=== PATIENT | male | born 1980 | race Two or more races ===

== ENCOUNTER 2025-07-08 17:40 | Inpatient (IN) | payer MEDICAID, OTHER ==
[~2025-07-08] VITALS: Ht 182.9 cm; Wt 125.3 kg
[2025-07-08] VITALS (8 sets, daily range): BP systolic 113–129; BP diastolic 64–79; PULSE 70–135; RESP 11–19; TEMP 97.7–98.4; O2SAT 94–97
[2025-07-08] MEDS ORDERED: ANGIOMAX 250 MG VIAL IV ONE ×2 (17:54→18:23)
[2025-07-08] MEDS ORDERED: SODIUM CHL 0.9% 50 ML ONE ×2 (17:54→18:23)
[2025-07-08] MEDS ORDERED: LIDOCAINE 2%HCL (LOCAL ANESTH.) INJ 20ML MDV ONE (17:55)
[2025-07-08] MEDS ORDERED: IODIXANOL 320MG/ML 100ML BTL IV ONE (17:55)
[2025-07-08] MEDS ORDERED: NITROGLYCERIN 2% OINT 1GM PKG TD ONE (18:00)
[2025-07-08] MEDS ORDERED: ONDANSETRON HCL 4 MG/2 ML VIAL IV ONE (18:00)
[2025-07-08] MEDS ORDERED: MORPHINE SULFATE 4 MG/ML SYR/VIAL IV ONE (18:00)
--- NOTE | 2025-07-08 18:04 | ED.PDOC ---
HPI Comments 45-year-old male brought in by EMS from home complaining of chest pain described as a heavy weight sitting on his chest, radiating to LUE and L jaw, associated with shortness of breath, nausea and diaphoresis, onset around 1650. EKG performed by EMS showed inferior ST-elevation with reciprocal changes. On arrival to the ED, code STEMI was activated. Patient took his own aspirin 324 mg p.o. Chief Complaint: Chest Pain Time Seen by MD: 17:49 Allergies: Coded Allergies: NO KNOWN ALLERGIES (Unverified , 07/08/25) Mode of Arrival: EMS Past Medical History PAST MEDICAL HISTORY: High Lipids, HTN Surgical History: Denies all surgeries Family History Family History: Family hx of heart paulina, Family hx of stroke Social History Smoker: Non-Smoker Alcohol: Denies ETOH Use Drugs: Denies Drug Use Lives In: Home All Other Systems: Reviewed and Negative Physical Exam General Appearance: Mild Distress, Obese HEENT: Other (Pupils and face symmetric. Moist mucous membranes.) Neck: Full Range of Motion, Normal Inspection Respiratory: Lungs Clear, No Accessory Muscle Use, No Respiratory Distress, N ormal Breath Sounds Cardiovascular: No Edema, No JVD, Regular Rate/Rhythm Breast Exam: Deferred Gastrointestinal: Non Tender, Soft Genitalia: Deferred Pelvic: Deferred Rectal: Deferred Extremities: Normal inspection, Normal range of motion, Non-tender, No pedal edema Neurologic: Alert (Oriented x4), Normal Affect, Normal Mood, Other (No gross focal deficit) Cerebellar Function: NOT DONE Reflexes: NOT DONE Skin: Dry, Pallor, Warm Lymphatic: NOT DONE EKG EKG : Comments Sinus rhythm, rate 78, normal intervals, normal axis, ST-elevation in leads 2, 3, AVF, V4 through V6 with reciprocal changes in aVL, V1 and V2 with ST- elevation [place] Was a procedure done? Was a procedure done?: No CP Differential Dx Differential Diagnosis: Angina, Heart Failure, TX, Pulmonary Embolus Differential Diagnosis: HTN Essential, HTN Accelerated Differential Diagnosis: Aortic dissection, Chest Wall Pain, Esophageal reflux/spasm, Gastritis, Pericarditis X-Ray, Labs, Meds, VS Vital Signs Date Time Temp Pulse Resp B/P (MAP) Pulse Ox O2 Delivery O2 Flow Rate FiO2 07/08/25 17:43 98.8 88 22 170/102 100 98.8 07/08/25 17:42 78 Lab Test 07/08/25 17:50 Range/Units White Blood Count 10.9 H 4.4-10.8 10^3/uL Red Blood Count 5.91 H 4.5-5.90 10^6/uL Hemoglobin 17.3 13.5-17.5 g/dL Hematocrit 50.2 41.0-53.0 % Mean Corpuscular Volume 84.9 80.0-100.0 fL Mean Corpuscular Hemoglobin 29.3 28.0-32.0 pg Mean Corpuscular Hemoglobin Concent 34.5 32.0-36.0 g/dL Red Cell Distribution Width 14.1 11.8-14.3 % Platelet Count 227 140-450 10^3/uL Mean Platelet Volume 8.4 6.9-10.8 fL Neutrophils (%) (Auto) 62.6 37.0-80.0 % Lymphocytes (%) (Auto) 27.6 10.0-50.0 % Monocytes (%) (Auto) 7.7 0.0-12.0 % Eosinophils (%) (Auto) 1.2 0.0-7.0 % Basophils (%) (Auto) 0.9 0.0-2.0 % Neutrophils # (Auto) 6.8 1.6-8.6 10 ^3/uL Lymphocytes # (Auto) 3.0 0.4-5.4 10 ^3/uL Monocytes # (Auto) 0.8 0-1.3 10 ^3/uL Eosinophils # (Auto) 0.1 0-0.8 10 ^3/uL Basophils # (Auto) 0.1 0-0.2 10 ^3/uL Nucleated Red Blood Cells 0.1 % Prothrombin Time 11.3 9.3-11.8 sec Prothrombin Time INR 1.07 0.9-1.15 Activated Partial Thromboplast Time 25.4 24.5-34.5 SEC Sodium Level 139 136-145 mmol/L Potassium Level 4.3 3.5-5.1 mmol/L Chloride Level 105 98-107 mmol/L Carbon Dioxide Level 24 20-31 mmol/L Anion Gap 10 5-15 Blood Urea Nitrogen 18 9-23 mg/dL Creatinine 2.06 H 0.700-1.30 mg/dL Glomerular Filtration Rate Calc 40 >90 mL/min BUN/Creatinine Ratio 8.7 L 10.0-20.0 Serum Glucose 165 H 74-106 mg/dL Calcium Level 9.4 8.7-10.4 mg/dL Magnesium Level 1.9 1.6-2.6 mg/dL Total Bilirubin 0.5 0.2-1.0 mg/dL Aspartate Amino Transferase (AST) 25 13-40 U/L Alanine Aminotransferase (ALT) 28 7-40 U/L Alkaline Phosphatase 82 46-116 U/L Troponin I High Sensitivity 8 </=54 ng/L B-Type Natriuretic Peptide 43.26 0-100 pg/mL Total Protein 6.9 5.7-8.2 g/dL Albumin 4.5 3.2-4.8 g/dL PROCEDURE(s): CXRP - CHEST PORTABLE REASON: stemi ORDER NUMBER(s): [id number], ACCESSION NUMBER(s): [id number] CHEST RADIOGRAPH Indication: stemi Technique: Single frontal view of the chest was obtained Comparison: None FINDINGS: Lines and Tubes: None Lungs: No focal consolidation. Pleura: No effusion. No pneumothorax. Cardiomediastinal contours: Unremarkable Bones: No acute osseous abnormality. IMPRESSION: 1. No acute cardiopulmonary disease. X-Ray, Labs, Meds, VS Comment 45-year-old male with history of hypertension and dyslipidemia brought in by EMS from home complaining of chest pain. EKG shows STEMI Vitals remarkable for respiratory rate 22, BP 170/102 Exam unremarkable Rhythm strip independently interpreted by me: Sinus rhythm, rate 98, no ectopy. CBC remarkable for WBC 10.9, metabolic panel remarkable for creatinine 2.06, BNP and 1st troponin unremarkable Chest x-ray unremarkable Patient treated with the following in the ED: I immediately discussed the case with Dr. Carr, who agreed the patient qualifies as a STEMI. Code STEMI was immediately activated. 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 Time of 1ST Reevaluation: 18:02 Reevaluation 1ST: Improved Patient Education/Counseling: Diagnosis, Treatment Family Education/Counseling: No Family Present SEPSIS Sepsis Screen Date sepsis recognized/suspect: Jul 08, 2025 Time Sepsis recognized/suspect: 1742 Recent Procedure: No On Antibiotic Therapy: No Respiratory Rate >20: No Heart Rate >90: No Temp<36 C (96.8 F) or >38.3 C: No SBP <90 or MAP <65 mmHG: No New Acute Mental Status Change: No Is the patient on CPAP, BIPAP,: No SEPSIS EXCLUSION NOTE: Sepsis Exclusion Note: Patient presents with SIRS criteria, but the SIRS response is attributed to [ST- elevation [place] ], not a suspected infection. Sepsis bundle is not initiated at this time, due to this reason. Further management will focus on the treatment of the above condition (s). Physician Orders Chest Portable (07/08/25 17:49) Urinalysis (07/08/25 17:49) Electrocardigram (07/08/25 20:49) Electrocardigram (07/08/25 18:49) Cl Left Heart Cath (07/08/25 17:57) 2 Large Bore Ivs (20mg Or Larg (07/08/25 17:57) Vital Signs Date Time Temp Pulse Resp B/P (MAP) Pulse Ox O2 Delivery O2 Flow Rate FiO2 07/08/25 17:43 98.8 88 22 170/102 100 98.8 07/08/25 17:42 78 Laboratory Tests Test 07/08/25 17:50 White Blood Count 10.9 10^3/uL (4.4-10.8) H Departure 1 Departure Time of Disposition: 18:03 Impression: Primary Impression: ST elevation TX (STEMI) Qualified Codes: I21.3 - ST elevation (STEMI) myocardial infarction of unspecified site Disposition: ADMITTED INPATIENT Admit to: ERIN Condition: Serious Critical Care Note Critical Care Time?: Yes (30 min-critical care time only) Critical care comment: Critical care time including multiple bedside re-evaluations, review of lab and imaging studies, and discussion of the case with the admitting provider. Patient is high risk for hemodynamic decompensation. Stability Stability form required: No Heart Score Heart Score: Heart Score Response (Comments) Value History Highly Suspicious [address]-Deviation 2 Age <45 0 Risk Factors 1 or 2 risk factors 1 Troponin Normal limit 0 Total 5 ANGELICA MEANS MD Jul 08, 2025 18:04
[2025-07-08 18:06] LABS: Hematocrit 50.2 % (41.0-53.0); Hemoglobin 17.3 g/dL (13.5-17.5); Mean Corpuscular Hemoglobin 29.3 pg (28.0-32.0); Mean Corpuscular Volume 84.9 fL (80.0-100.0); Nucleated Red Blood Cells % 0.1 %
[2025-07-08 18:18] LABS: Alanine Aminotransferase 28 U/L (7-40); Alkaline Phosphatase 82 U/L (46-116); Anion Gap 10 (5-15); Calcium 9.4 mg/dL (8.7-10.4); Carbon Dioxide 24 mmol/L (20-31); Chloride 105 mmol/L (98-107); Magnesium 1.9 mg/dL (1.6-2.6); Potassium 4.3 mmol/L (3.5-5.1); Sodium 139 mmol/L (136-145)
[2025-07-08 18:19] LABS: Albumin 4.5 g/dL (3.2-4.8); BUN/Creatinine Ratio 8.7 (10.0-20.0); Bilirubin, Total 0.5 mg/dL (0.2-1.0); Blood Urea Nitrogen 18 mg/dL (9-23); Glucose 165 mg/dL (74-106); Total Protein 6.9 g/dL (5.7-8.2)
[2025-07-08] MEDS ORDERED: MIDAZOLAM HCL 2MG/2ML 2ml VIAL (1mg/ml) ONE (18:20)
[2025-07-08] MEDS ORDERED: fentaNYL CITRATE 100 MCG/2 ML VL ONE (18:20)
--- NOTE | 2025-07-08 18:20 | DVH ---
CHEST RADIOGRAPH Indication: stemi Technique: Single frontal view of the chest was obtained Comparison: None FINDINGS: Lines and Tubes: None Lungs: No focal consolidation. Pleura: No effusion. No pneumothorax. Cardiomediastinal contours: Unremarkable Bones: No acute osseous abnormality. IMPRESSION: 1. No acute cardiopulmonary disease.
[2025-07-08 18:27] LABS: INR 1.07 (0.9-1.15); Partial Thromboplastin Time 25.4 SEC (24.5-34.5); Prothrombin Time 11.3 sec (9.3-11.8)
--- NOTE | 2025-07-08 18:30 | ECG ---
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
[2025-07-08] MEDS: MORPHINE SULFATE 4 MG/ML SYR/VIAL ONE (18:35)
[2025-07-08] MEDS: ONDANSETRON HCL 4 MG/2 ML VIAL ONE (18:35)
[2025-07-08] MEDS ORDERED: ATROPINE SULF 1 MG/10ml SYR ONE (18:49)
[2025-07-08] MEDS ORDERED: ONDANSETRON HCL 4 MG/2 ML VIAL ONE (18:58)
[2025-07-08] MEDS ORDERED: EPTIFIBATIDE DRIP(0.75MG/ML) 100 ML IV ONE (19:13)
[2025-07-08] MEDS ORDERED: EPTIFIBATIDE INJ (2MG/ML) 10ML VIAL IV ONE (19:13)
[2025-07-08] MEDS ORDERED: TICAGRELOR 90 MG TAB ONE (19:21)
[2025-07-08] MEDS ORDERED: NITROGLYCERIN 0.4 MG SL TAB SL PRN (19:30)
--- NOTE | 2025-07-08 23:13 | DVHINCON2 ---
Date of service: Jul 08, 2025 Referring Physician Mulugeta Reason for Consultation STEMI History of Present Illness This is a 44 year old male with a PMH of HTN HLD who was brought in by EMS with complaints of chest pain described as a heavy weight sitting on his chest, radiating to LUE and left side of jaw. Associated symptoms of shortness of breath, nausea and diaphoresis, onset around 1650. EKG performed by EMS showed inferior ST-elevation with reciprocal changes. On arrival to the ED, code STEMI was activated. Patient took his own aspirin 324 mg p.o. I seen the patient within a few minutes. EKG in the ED revealed sinus rhythm at 78, normal intervals, normal axis, ST-elevation in leads 2, 3, AVF, V4 through V6 with reciprocal changes in aVL, V1 and V2 with ST-elevation [place]. Chest x-ray shows NAD. CBC remarkable for WBC 10.9, metabolic panel remarkable for creatinine 2.06. BNP and 1st troponin unremarkable. Patient received nitro bid 1/2 inch topically, morphine 4 mg IV, Zofran 4 mg IV. Patient advised for cardiac cath. Patient received nitro bid 1/2 inch topically, morphine 4 mg IV, Zofran 4 mg IV Family History: Diabetes mellitus G8 MOTHER G8 FATHER FH: CVA (cerebrovascular accident) G8 MOTHER FH: peptic ulcer G8 FATHER Allergies: Coded Allergies: NO KNOWN ALLERGIES (Unverified , 07/08/25) Current Medications Current Medications Medications (Trade) Dose Ordered Sig/Negrita Route PRN Reason Start Time Stop Time Status Last Admin Nitroglycerin (Ntrostat Sublingual) 0.4 mg Q5MINP PRN SL FOR CHEST PAIN 07/08/25 19:30 Morphine Sulfate 2 mg Q30M PRN IV FOR CHEST PAIN 07/08/25 19:30 Metoprolol Succinate (Toprol Xl) 25 mg DAILY PO 07/09/25 10:00 Aspirin 81 mg DAILY PO 07/09/25 10:00 Atorvastatin Calcium (Lipitor) 80 mg HS PO 07/08/25 22:00 Clopidogrel Bisulfate (Plavix) 75 mg DAILY PO 07/10/25 10:00 Losartan Potassium (Cozaar Tablet) 25 mg DAILY PO 07/09/25 10:00 Cancel Eptifibatide 100 ml @ 20 mls/hr Q5H IV 07/08/25 20:00 07/09/25 17:00 Losartan Potassium (Cozaar Tablet) 25 mg BID PO 07/08/25 22:00 Amiodarone HCl (Cordarone Tablet) 200 mg Q12HR PO 07/09/25 10:00 UNV Review of Systems All Other Systems: Reviewed and Negative Vital Signs Vital Signs Date Time Temp Pulse Resp B/P (MAP) Pulse Ox O2 Delivery O2 Flow Rate FiO2 07/08/25 21:00 97.7 78 19 129/79 (96) 97 97.7 Physical Exam GENERAL: Alert and oriented x 3. No acute distress. EYES: PERRL, EOMI. Anicteric. HENT: Moist mucous membranes. LUNGS: Clear to auscultation bilaterally. CARDIOVASCULAR: Regular rate and rhythm. ABDOMEN: Soft, non-tender and non-distended. EXTREMITIES: No edema. NEUROLOGIC: No focal neurological deficits. SKIN: Warm, dry. Labs/Diagnostic Data Labs Test 07/08/25 17:50 Range/Units White Blood Count 10.9 H 4.4-10.8 10^3/uL Red Blood Count 5.91 H 4.5-5.90 10^6/uL Hemoglobin 17.3 13.5-17.5 g/dL Hematocrit 50.2 41.0-53.0 % Mean Corpuscular Volume 84.9 80.0-100.0 fL Mean Corpuscular Hemoglobin 29.3 28.0-32.0 pg Mean Corpuscular Hemoglobin Concent 34.5 32.0-36.0 g/dL Red Cell Distribution Width 14.1 11.8-14.3 % Platelet Count 227 140-450 10^3/uL Mean Platelet Volume 8.4 6.9-10.8 fL Neutrophils (%) (Auto) 62.6 37.0-80.0 % Lymphocytes (%) (Auto) 27.6 10.0-50.0 % Monocytes (%) (Auto) 7.7 0.0-12.0 % Eosinophils (%) (Auto) 1.2 0.0-7.0 % Basophils (%) (Auto) 0.9 0.0-2.0 % Neutrophils # (Auto) 6.8 1.6-8.6 10 ^3/uL Lymphocytes # (Auto) 3.0 0.4-5.4 10 ^3/uL Monocytes # (Auto) 0.8 0-1.3 10 ^3/uL Eosinophils # (Auto) 0.1 0-0.8 10 ^3/uL Basophils # (Auto) 0.1 0-0.2 10 ^3/uL Nucleated Red Blood Cells 0.1 % Prothrombin Time 11.3 9.3-11.8 sec Prothrombin Time INR 1.07 0.9-1.15 Activated Partial Thromboplast Time 25.4 24.5-34.5 SEC Sodium Level 139 136-145 mmol/L Potassium Level 4.3 3.5-5.1 mmol/L Chloride Level 105 98-107 mmol/L Carbon Dioxide Level 24 20-31 mmol/L Anion Gap 10 5-15 Blood Urea Nitrogen 18 9-23 mg/dL Creatinine 2.06 H 0.700-1.30 mg/dL Glomerular Filtration Rate Calc 40 >90 mL/min BUN/Creatinine Ratio 8.7 L 10.0-20.0 Serum Glucose 165 H 74-106 mg/dL Calcium Level 9.4 8.7-10.4 mg/dL Magnesium Level 1.9 1.6-2.6 mg/dL Total Bilirubin 0.5 0.2-1.0 mg/dL Aspartate Amino Transferase (AST) 25 13-40 U/L Alanine Aminotransferase (ALT) 28 7-40 U/L Alkaline Phosphatase 82 46-116 U/L Troponin I High Sensitivity 8 </=54 ng/L B-Type Natriuretic Peptide 43.26 0-100 pg/mL Total Protein 6.9 5.7-8.2 g/dL Albumin 4.5 3.2-4.8 g/dL Assessment STEMI. Chest pain. HTN. HLD. Plan/Recommendation I agree with your ongoing assessment and care of plan. Cardiac cath. Risks and benefits were discussed with the patient. Morphine. Nitro SL. Aspirin, Lipitor, Metoprolol, Plavix. Losartan. Amiodarone. Additional plan as per the hospital course. A total of 45 minutes was spent reviewing the patient record, examining the patient, making a diagnostic and therapeutic plan, discussing this plan with medical personnel, following up on diagnostic studies and following the patient for clinical stability excluding any and all procedures. At least 50% of this time was spent in direct, [id number] contact. Plan discussed with: Patient МАРИНА SOTELO MD Jul 08, 2025 23:13
[2025-07-08] MEDS: ATORVASTATIN 20 MG TAB PO SCH (23:32)
[2025-07-08] MEDS: AMIODARONE HCL 200 MG TAB PO ONE (23:33)
[2025-07-08] MEDS: LOSARTAN POTASSIUM 50 MG TAB PO SCH (23:49)
[2025-07-09] VITALS (9 sets, daily range): BP systolic 98–130; BP diastolic 61–89; PULSE 55–63; RESP 17–20; TEMP 97.3–98.3; O2SAT 95–98
[2025-07-09] MEDS: EPTIFIBATIDE DRIP(0.75MG/ML) 100 ML IV SCH (01:00)
[2025-07-09] MEDS: MORPHINE SULFATE INJ 2 MG/ml SYRG IV PRN (05:17)
--- NOTE | 2025-07-09 07:29 | DVHOP ---
DATE OF SURGERY: 07/08/2025 TECHNIQUE PERFORMED: * Code STEMI. * Left heart cath. * Left coronary angiography * [place] selective left and right coronary artery angiography. ASSISTANTS: Assisted by our staff here is Eda Hall Steven. INDICATIONS: As follows: * The patient had code STEMI. * Acute inferior wall myocardial infarction. DESCRIPTION OF PROCEDURE: Risks and benefits were discussed in a standard manner. The patient had been urgently brought to labor representative and the right femoral artery had been located. Ultrasound was done. A 6-Egyptian arterial line was used during the protocol. With the help of a JL4 catheter, performed. With the help of the JR4 6-Egyptian guiding catheter, the right groin angio performed. At the end of the procedure, we also did a left heart cath and the left ventriculogram procedure completed. IMPRESSION: * Normal left main. * Left anterior descending artery has been normal and artery normal. * Circumflex and obtuse marginal arteries all have been normal. * patient's right coronary artery is a large dominant artery and distally it is 100% acutely occluded. MAYRA grade 0 flow. * The ejection fraction wall hypokinesis. PLAN OF ACTION: Advised to undergo the intervention of the right coronary artery. Hector Carr MD MP/MARAH/KEYANNA/MARIBELL TID: [id number] RECEIPT: [id number] MTDRahul
--- NOTE | 2025-07-09 07:45 | DVHOP ---
DATE OF SURGERY: 07/08/2025 TECHNIQUES PERFORMED: * Post STEMI. * Right groin angiography. * Mechanical thrombectomy of the distal region of the right coronary artery with 6-Czech [place] catheter. * Balloon angioplasty of the right coronary artery with 3.2 x 12 mm length semi-compliant balloon. * Balloon angioplasty of the distal region of the right coronary artery with a 3.0 x 12 mm length semi-compliant balloon. * Stenting and angioplasty of the distal region of the right coronary artery with a 3.0 x 15 mm length Jim Otoe stent of Sencera and inflated mm in size. * Right iliofemoral artery angiography. * Arteriotomy angiography of the right femoral artery. * administration of Integrilin and bolus. * Ultrasound of the right femoral artery was done. DESCRIPTION OF PROCEDURE: On 07/08/2025, the patient with post STEMI acute inferior wall myocardial infarction. Procedure was discussed. He was brought to the label stamper after doing the ultrasound of the right femoral artery was done. After doing ultrasound, 6-Czech arterial line has been placed guidance. Subsequently 6-Czech line had been placed after doing the ultrasound, we put a 6-Czech guiding catheter with a side hole. Angiomax was given. Runthrough wire was passed and Shepp[place] catheter thrombectomy was done. Angiography done, result was satisfactory. Subsequently, we put a balloon 3.0 x 12. Angioplasty was done and flow had been established. After doing angioplasty, there was an intimal dissection also noted, about 8 mm length. Subsequently, now we put a stent 3.0 x 15 mm length Jim Otoe stent inflated at 17 atmospheres, stent size was increased to 3.33 mm in size, inflated for 35 seconds and for 15 seconds. Angiography done, result was satisfactory. Post-stent, there was some noted in the range of only 50%. At the end of the procedure, intracoronary Integrilin was also given with the bolus and started on the patient. Right iliofemoral artery angiography was done with the help of an Amplatz wire and Angio-Seal also had been done. The procedure went well. There were no complications. CONCLUSION: distal region of the right coronary artery 100% acutely occluded, MAYRA grade 0 flow. Postprocedure, MAYRA grade 3 flow. No spasm. No dissection. No thrombosis. Right coronary artery is a large dominant artery. PLAN OF ACTION: * label stamper. * From tomorrow, the patient will be getting Plavix and to be continued Plavix 75 mg a day, aspirin 81 mg a day, Coreg. Hector Carr MD MP/[place]AN [place]/KEYANNA/MARIBELL TID: [id number] RECEIPT: [id number] MTDD
[2025-07-09] MEDS ORDERED: LOSARTAN POTASSIUM 25 MG TAB PO SCH (10:00)
[2025-07-09] MEDS: METOPROLOL SUCCINATE XL 50 MG TAB PO SCH (11:15)
[2025-07-09] MEDS: AMIODARONE HCL 200 MG TAB PO SCH (11:16)
--- NOTE | 2025-07-09 12:06 | DVHPN2 ---
Reviewed: Care Plan, H&P, Labs, Medications, Previous Orders, Radiology Changes from previous H/P or p: No Changes Objective Vitals Vital Signs Date Time Temp Pulse Resp B/P (MAP) Pulse Ox O2 Delivery O2 Flow Rate FiO2 07/09/25 11:16 126/88 07/09/25 11:15 19 07/09/25 09:00 98.3 19 95 98.3 07/09/25 08:00 Room Air* 0 21 Intake/Output Intake and Output 07/09/25 07:00 Intake Total 800 ml Balance 800 ml Intake Oral 800 ml # Voids 2 Medications Current Medications Medications Dose Ordered Sig/Negrita Route Start Time Stop Time Status Last Admin Dose Admin Nitroglycerin 0.4 mg Q5MINP PRN SL 07/08/25 19:30 Morphine Sulfate 2 mg Q30M PRN IV 07/08/25 19:30 07/09/25 05:17 2 MG Metoprolol Succinate 25 mg DAILY PO 07/09/25 10:00 07/09/25 11:15 25 MG Aspirin 81 mg DAILY PO 07/09/25 10:00 07/09/25 11:17 81 MG Atorvastatin Calcium 80 mg HS PO 07/08/25 22:00 07/08/25 23:32 80 MG Clopidogrel Bisulfate 75 mg DAILY PO 07/10/25 10:00 Losartan Potassium 25 mg DAILY PO 07/09/25 10:00 Cancel Eptifibatide 100 ml @ 20 mls/hr Q5H IV 07/08/25 20:00 07/09/25 17:00 07/09/25 11:24 20 MLS/HR Losartan Potassium 25 mg BID PO 07/08/25 22:00 07/09/25 11:16 25 MG Amiodarone HCl 200 mg Q12HR PO 07/09/25 10:00 07/09/25 11:16 200 MG Laboratory Results Laboratory Tests 07/08/25 17:50 Chemistry Test 07/08/25 17:50 Albumin 4.5 g/dL (3.2-4.8) Calcium Level 9.4 mg/dL (8.7-10.4) Magnesium Level 1.9 mg/dL (1.6-2.6) Total Protein 6.9 g/dL (5.7-8.2) Coagulation Test 07/08/25 17:50 Prothrombin Time 11.3 sec (9.3-11.8) Prothrombin Time INR 1.07 (0.9-1.15) Activated Partial Thromboplast Time 25.4 SEC (24.5-34.5) Cardiac Markers Test 07/08/25 17:50 B-Type Natriuretic Peptide 43.26 pg/mL (0-100) LFT Test 07/08/25 17:50 Alanine Aminotransferase (ALT) 28 U/L (7-40) Alkaline Phosphatase 82 U/L (46-116) Aspartate Amino Transferase (AST) 25 U/L (13-40) Total Bilirubin 0.5 mg/dL (0.2-1.0) Labs and/or images reviewed: Labs reviewed by me, Image(s) reviewed by me Assessment/Plan Assessment/Plan Acute Chest pain secondary to coronary artery disease Acute inferior OR with troponin 25K, status post emergency left heart catheterization by Dr. Hill Carr with a mechanical thrombectomy of distal right coronary balloon angioplasty of right coronary stenting of the distal right coronary Plan discussed with: Patient Date of Service: Jul 09, 2025 Billing Provider: VINNIE LAU MD Common Visit Codes: [id number] INP/OBS CARE(HIGH) VINNIE LAU MD Jul 09, 2025 12:06
--- NOTE | 2025-07-09 16:34 | ECG ---
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
[2025-07-09] MEDS: CLOPIDOGREL BISULFATE 75 MG TAB PO ONE (17:24)
--- NOTE | 2025-07-09 21:56 | DVHPN2 ---
Progress Note - Dictate Date Seen: Jul 09, 2025 Medical Necessity Reason Pt with a Central, PICC or Fol: No Subjective Patient was seen and evaluated in follow up. Patient is s/p left heart cath, [place] selective left and right coronary artery angiography, right groin angiography, mechanical thrombectomy of the distal region of the right coronary artery, balloon angioplasty of the right coronary artery, balloon angioplasty of the distal region of the right coronary artery, stenting and angioplasty of the distal region of the right coronary artery. Troponin > 17305. Telemetry reviewed. vital signs Vital Sign Date Time Temp Pulse Resp B/P (MAP) Pulse Ox O2 Delivery O2 Flow Rate FiO2 07/09/25 17:00 97.4 60 17 116/78 (91) 98 97.4 07/09/25 08:00 Room Air* 0 21 Total Intake and Output 07/08/25 07/08/25 07/09/25 15:00 23:00 07:00 Intake Total 800 ml Balance 800 ml medications Current Medications Medications Dose Ordered Sig/Negrita Route Start Time Stop Time Status Last Admin Dose Admin Nitroglycerin 0.4 mg Q5MINP PRN SL 07/08/25 19:30 Morphine Sulfate 2 mg Q30M PRN IV 07/08/25 19:30 07/09/25 05:17 2 MG Metoprolol Succinate 25 mg DAILY PO 07/09/25 10:00 07/09/25 11:15 25 MG Aspirin 81 mg DAILY PO 07/09/25 10:00 07/09/25 11:17 81 MG Atorvastatin Calcium 80 mg HS PO 07/08/25 22:00 07/09/25 21:47 80 MG Clopidogrel Bisulfate 75 mg DAILY PO 07/10/25 10:00 Losartan Potassium 25 mg DAILY PO 07/09/25 10:00 Cancel Losartan Potassium 25 mg BID PO 07/08/25 22:00 07/09/25 11:16 25 MG Amiodarone HCl 200 mg Q12HR PO 07/09/25 10:00 07/09/25 11:16 200 MG objective GENERAL: Alert and oriented x 3. No acute distress. EYES: PERRL, EOMI. Anicteric. HENT: Moist mucous membranes. LUNGS: Clear to auscultation bilaterally. CARDIOVASCULAR: Regular rate and rhythm. ABDOMEN: Soft, non-tender and non-distended. EXTREMITIES: No edema. NEUROLOGIC: No focal neurological deficits. SKIN: Warm, dry. laboratory and microbiology Laboratory Tests 07/08/25 17:50 Test 07/08/25 17:50 Range/Units Serum Glucose 165 H 74-106 mg/dL Problem List STEMI. Chest pain. HTN. HLD. Assessment/Plan Continued all current supportive medical care. Amiodarone. Aspirin, Lipitor, Metoprolol, Plavix. Losartan. Morphine for pain management. Nitro SL. Additional plan as per the hospital course. Plan discussed with: Patient МАРИНА SOTELO MD Jul 09, 2025 21:56
[2025-07-10 01:00] VITALS: BP 107/68; PULSE 59; RESP 20; TEMP 98.4; O2SAT 96
[2025-07-10 08:00] VITALS: PULSE 106; PULSE 64; RESP 18
--- NOTE | 2025-07-10 08:33 | DVHPN2 ---
Reviewed: Care Plan, H&P, Labs, Medications, Previous Orders, Radiology Changes from previous H/P or p: No Changes Objective Vitals Vital Signs Date Time Temp Pulse Resp B/P (MAP) Pulse Ox O2 Delivery O2 Flow Rate FiO2 07/10/25 01:00 98.4 59 20 107/68 (81) 96 98.4 07/09/25 20:00 Room Air* 0 21 Intake/Output Intake and Output 07/10/25 07:00 Intake Total 800 ml Balance 800 ml Intake Oral 800 ml # Voids 6 # Bowel Movements 1 Medications Current Medications Medications Dose Ordered Sig/Negrita Route Start Time Stop Time Status Last Admin Dose Admin Nitroglycerin 0.4 mg Q5MINP PRN SL 07/08/25 19:30 Morphine Sulfate 2 mg Q30M PRN IV 07/08/25 19:30 07/09/25 05:17 2 MG Metoprolol Succinate 25 mg DAILY PO 07/09/25 10:00 07/09/25 11:15 25 MG Aspirin 81 mg DAILY PO 07/09/25 10:00 07/09/25 11:17 81 MG Atorvastatin Calcium 80 mg HS PO 07/08/25 22:00 07/09/25 21:47 80 MG Clopidogrel Bisulfate 75 mg DAILY PO 07/10/25 10:00 Losartan Potassium 25 mg DAILY PO 07/09/25 10:00 Cancel Losartan Potassium 25 mg BID PO 07/08/25 22:00 07/09/25 23:12 25 MG Amiodarone HCl 200 mg Q12HR PO 07/09/25 10:00 07/09/25 23:11 200 MG Laboratory Results Laboratory Tests 07/08/25 17:50 Labs and/or images reviewed: Labs reviewed by me, Image(s) reviewed by me Assessment/Plan Assessment/Plan Acute Chest pain secondary to coronary artery disease Acute inferior STEMI with troponin 25K, status post emergency left heart catheterization by Dr. Hill Carr with a mechanical thrombectomy of distal right coronary balloon angioplasty of right coronary stenting of the distal right coronary Hypertension Hyperlipidemia Plan discussed with: Patient Date of Service: Jul 10, 2025 Billing Provider: VINNIE LAU MD Common Visit Codes: [id number] INP/OBS CARE(HIGH) VINNIE LAU MD Jul 10, 2025 08:33
[2025-07-10] MEDS ORDERED: METO25TA93 PO (08:36)
[2025-07-10] MEDS ORDERED: ATOR80TA PO (08:36)
[2025-07-10] MEDS ORDERED: CLOP75TA28 PO (08:36)
[2025-07-10] MEDS ORDERED: AMIO200T33 PO (08:36)
[2025-07-10] MEDS ORDERED: LOSA50TA12 PO (08:36)
[2025-07-10] MEDS ORDERED: ASPI1TAB19 PO (08:36)
--- NOTE | 2025-07-10 08:40 | DVHDS2 ---
Discharge Summary Date of Admission Jul 08, 2025 at 19:20 Date of Discharge: Jul 10, 2025 Admitting Diagnosis Acute chest pain Wounds: Left heart catheterization Labs/Diagnostic Data: Laboratory Results Test 07/09/25 10:17 07/08/25 17:50 Troponin I High Sensitivity > 32641 ng/L (</=54) White Blood Count 10.9 10^3/uL (4.4-10.8) Red Blood Count 5.91 10^6/uL (4.5-5.90) Hemoglobin 17.3 g/dL (13.5-17.5) Hematocrit 50.2 % (41.0-53.0) Mean Corpuscular Volume 84.9 fL (80.0-100.0) Mean Corpuscular Hemoglobin 29.3 pg (28.0-32.0) Mean Corpuscular Hemoglobin Concent 34.5 g/dL (32.0-36.0) Red Cell Distribution Width 14.1 % (11.8-14.3) Platelet Count 227 10^3/uL (140-450) Mean Platelet Volume 8.4 fL (6.9-10.8) Neutrophils (%) (Auto) 62.6 % (37.0-80.0) Lymphocytes (%) (Auto) 27.6 % (10.0-50.0) Monocytes (%) (Auto) 7.7 % (0.0-12.0) Eosinophils (%) (Auto) 1.2 % (0.0-7.0) Basophils (%) (Auto) 0.9 % (0.0-2.0) Neutrophils # (Auto) 6.8 10 ^3/uL (1.6-8.6) Lymphocytes # (Auto) 3.0 10 ^3/uL (0.4-5.4) Monocytes # (Auto) 0.8 10 ^3/uL (0-1.3) Eosinophils # (Auto) 0.1 10 ^3/uL (0-0.8) Basophils # (Auto) 0.1 10 ^3/uL (0-0.2) Nucleated Red Blood Cells 0.1 % Prothrombin Time 11.3 sec (9.3-11.8) Prothrombin Time INR 1.07 (0.9-1.15) Activated Partial Thromboplast Time 25.4 SEC (24.5-34.5) Sodium Level 139 mmol/L (136-145) Potassium Level 4.3 mmol/L (3.5-5.1) Chloride Level 105 mmol/L (98-107) Carbon Dioxide Level 24 mmol/L (20-31) Anion Gap 10 (5-15) Blood Urea Nitrogen 18 mg/dL (9-23) Creatinine 2.06 mg/dL (0.700-1.30) Glomerular Filtration Rate Calc 40 mL/min (>90) BUN/Creatinine Ratio 8.7 (10.0-20.0) Serum Glucose 165 mg/dL (74-106) Calcium Level 9.4 mg/dL (8.7-10.4) Magnesium Level 1.9 mg/dL (1.6-2.6) Total Bilirubin 0.5 mg/dL (0.2-1.0) Aspartate Amino Transferase (AST) 25 U/L (13-40) Alanine Aminotransferase (ALT) 28 U/L (7-40) Alkaline Phosphatase 82 U/L (46-116) B-Type Natriuretic Peptide 43.26 pg/mL (0-100) Total Protein 6.9 g/dL (5.7-8.2) Albumin 4.5 g/dL (3.2-4.8) Other Laboratory Tests 07/08/25 17:50 Brief Hx & Hospital Course: 44-year-old male with a history of hypertension hypercholesterolemia came [place] [address] underwent emergency left heart catheterization by cardiology Dr. Hill Carr with a mechanical thrombectomy and angioplasty of right coronary artery with a stenting of distal right coronary artery please do placed on aspirin Plavix Lipitor Cozaar amiodarone metoprolol succinate and Lipitor. At the time of discharge vital signs stable patient is chest pain-free discharged home [facility] He will follow up with the Dr. Hill Carr in one week Consults/Reason for consult Cardiology Dr. Hill Carr Operations or Procedures Emergency left heart catheterization Condition at Discharge: Fair Final Diagnosis/Problems List Acute Chest pain secondary to coronary artery disease Acute inferior STEMI with troponin 25K, status post emergency left heart catheterization by Dr. Hill Carr with a mechanical thrombectomy of distal right coronary balloon angioplasty of right coronary stenting of the distal right coronary Hypertension Hyperlipidemia Discharge Disposition: Home Discharge Instruct/Medications Diet: Cardiac 2g Na,low cholest Activity: Light activity Follow Up/Referral: Follow up with the primary Dr in one week Follow up with the peer counselor Dr. Hill Carr in one week Medications: Aspirin Plavix Cozaar Amiodarone Metoprolol succinate Lipitor Transmitted to [facility] pharmacy Scheduled Amiodarone Hcl (Amiodarone Hcl), 200 MG PO BID Aspirin (Aspirin), 81 MG PO DAILY Atorvastatin Calcium (Lipitor), 1 TAB PO DAILY Clopidogrel Bisulfate (Plavix), 1 TAB PO DAILY Losartan Potassium (Cozaar), 50 MG PO DAILY Metoprolol Succinate (Metoprolol Succinate Er), 25 MG PO DAILY 35 (Time taken for discharge summary 35 minutes) Discharge Statement: "Patient was advised to return to the ER or call 911 if any headaches, dizziness, shortness of breath, chest pain, abdominal pain, bleeding, fevers, or worsening of medical condition. Patient was counseled about treatment plan, medications, possible side effects, patientverbalized understanding. All questions were answered to the best of my ability. This discharge took greater then 30 minutes in planning, reviewing documentation, counseling the patient, and discussing with other team members." ASSESSMENT ASSESSMENT Hospital Course Uneventful Assessment Acute Chest pain secondary to coronary artery disease Acute inferior STEMI with troponin 25K, status post emergency left heart catheterization by Dr. Hill Carr with a mechanical thrombectomy of distal right coronary balloon angioplasty of right coronary stenting of the distal right coronary Hypertension Hyperlipidemia Date of Service: Jul 10, 2025 Billing Provider: VINNIE LAU MD Common Visit Codes: [id number] DISCH DAY >30min VINNIE LAU MD Jul 10, 2025 08:40
[2025-07-10 09:00] VITALS: BP 92/60; PULSE 60; RESP 18; TEMP 99.1; O2SAT 96
[2025-07-10] MEDS: CLOPIDOGREL BISULFATE 75 MG TAB PO SCH (09:48)
[2025-07-10 12:00] VITALS: BP 101/73; PULSE 58; RESP 18; TEMP 98.1; O2SAT 96
--- NOTE | 2025-07-10 21:08 | DVHPN2 ---
Progress Note - Dictate Date Seen: Jul 10, 2025 Medical Necessity Reason Pt with a Central, PICC or Fol: No Subjective Patient was seen and evaluated in follow up. Patient has no new complaints at this time. Patient denies any cardiac symptoms. Patient is cardiac stable for discharge. Telemetry reviewed. vital signs Vital Sign Date Time Temp Pulse Resp B/P (MAP) Pulse Ox O2 Delivery O2 Flow Rate FiO2 07/10/25 12:00 98.1 58 18 101/73 (82) 96 98.1 07/10/25 08:00 Room Air* 0 21 Total Intake and Output 07/09/25 07/09/25 07/10/25 15:00 23:00 07:00 Intake Total 600 ml 200 ml Balance 600 ml 200 ml medications Current Medications Medications Dose Ordered Sig/Negrita Route Start Time Stop Time Status Last Admin Dose Admin Losartan Potassium 25 mg DAILY PO 07/09/25 10:00 Cancel objective GENERAL: Alert and oriented x 3. No acute distress. EYES: PERRL, EOMI. Anicteric. HENT: Moist mucous membranes. LUNGS: Clear to auscultation bilaterally. CARDIOVASCULAR: Regular rate and rhythm. ABDOMEN: Soft, non-tender and non-distended. EXTREMITIES: No edema. NEUROLOGIC: No focal neurological deficits. SKIN: Warm, dry. laboratory and microbiology Laboratory Tests 07/08/25 17:50 Test 07/08/25 17:50 Range/Units Serum Glucose 165 H 74-106 mg/dL Problem List STEMI. Chest pain. HTN. HLD. Assessment/Plan Continued all current supportive medical care. Amiodarone. Aspirin, Lipitor, Metoprolol, Plavix. Losartan. Morphine for pain management. Nitro SL. Additional plan as per the hospital course. Plan discussed with: Patient МАРИНА SOTELO MD Jul 10, 2025 21:08
--- NOTE | 2025-07-11 11:43 | ECG ---
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
== END 2025-07-10 12:10 | disposition home or self-care (01) | DRG 174 ==
LOC: EDBD 17:40 → ER 17:40 → OVERFLOW 19:20 → TELE-CENTR 21:00
PROVIDERS: ADMIT Family Medicine; ATTEND Family Medicine
PROC: 4A023N7 Measurement of Cardiac Sampling and Pressure, Left Heart, Percutaneous Approach (ICD-10-PCS; principal; 2025-07-08)
PROC: 027034Z Dilation of Coronary Artery, One Artery with Drug-eluting Intraluminal Device, Percutaneous Approach (ICD-10-PCS; 2025-07-08)
PROC: B2111ZZ Fluoroscopy of Multiple Coronary Arteries using Low Osmolar Contrast (ICD-10-PCS; 2025-07-08)
PROC: B2151ZZ Fluoroscopy of Left Heart using Low Osmolar Contrast (ICD-10-PCS; 2025-07-08)
PROC: 02C03ZZ Extirpation of Matter from Coronary Artery, One Artery, Percutaneous Approach (ICD-10-PCS; 2025-07-08)
PROC: B41FYZZ Fluoroscopy of Right Lower Extremity Arteries using Other Contrast (ICD-10-PCS; 2025-07-08)
DX: I21.19 ST elevation (STEMI) myocardial infarction involving other coronary artery of inferior wall (principal); E78.00 Pure hypercholesterolemia, unspecified; I25.10 Atherosclerotic heart disease of native coronary artery without angina pectoris; I10 Essential (primary) hypertension; Z95.5 Presence of coronary angioplasty implant and graft; Z83.3 Family history of diabetes mellitus; Z79.82 Long term (current) use of aspirin; Z82.3 Family history of stroke; Z79.02 Long term (current) use of antithrombotics/antiplatelets
CPT/HCPCS: 36415; 71045; 75710; 80053; 83735; 83880; 84484; 85025; 85610; 85730; 92941; 92973; 93005; 93458; 99152; 99291; C1887; G0378; J2250; J2405; Q9967